=== PATIENT | male | born 1990 | race Caucasian/White ===

== ENCOUNTER 2018-10-09 18:17 | Emergency (ER) | payer OTHER ==
[~2018-10-09] VITALS: Ht 180.3 cm; Wt 112.0 kg
--- OUTSIDE RECORDS SUMMARY | 2018-10-09 18:20 | XMS REPORT | Clinical Summary ---
Author Author [facility] Address Unknown Phone Unavailable Care Team Providers Care Legal Entity Controller Name Role Phone Malia Pagna MD PCP Allergies No Known Allergies Medications End Date Status Medication Sig Dispensed Refills Start Date Active lisinopril Take 10 mg by 3 (PRINIVIL,ZESTRIL) 10 mg mouth daily. 9 tablet Active fluticasone propionate fluticasone 0 (FLONASE) 50 propionate 50 mcg/actuation nasal spray mcg/actuation nasal spray,suspens ion Active syringe with needle (BD BD Allergy 0 ALLERGY SYRINGE) 1 mL 28 Syringe 1 mL gauge syringe 28 gauge USE 1 SYRINGE ONCE A WEEK Active mnnhbdm-ylbbqdzckfrxa-hez Take 1 tablet 0 feine (EXCEDRIN MIGRAINE) by mouth 250-250-65 mg per tablet every 6 (six) hours as needed for headaches. Active Problems No known active problems Encounters Care Team Description Date Type Specialty Jeremy Virgen MD PVC (premature ventricular contraction) (Primary Dx); Paroxysmal atrial fibrillation (HCC) 08/15/2018 Office Visit Cardiology [facility] PCA II PVC (premature ventricular contraction) (Primary Dx) 08/15/2018 Orders Only Cardiology Becky Leong MD Clary, Danisha, MA Routine medical exam (Primary Dx) 11/10/2017 [employer] [facility] after 10/08/2017 Family History Medical History Relation Name Comments Alzheimer's disease Father Dementia Father Cancer Maternal Grandfather COPD Maternal Grandmother Heart failure Maternal Grandmother Depression Mother Diabetes Mother Glaucoma Mother Hypertension Mother Obesity Mother Hyperthyroidism Sister Relation Name Status Comments Father Maternal Grandfather Maternal Grandmother Mother Alive Paternal Grandfather Paternal Grandmother Sister Alive Social History Date Tobacco Use Types Packs/Day Years Used Never Smoker Smokeless Tobacco: Never Used Alcohol Use Drinks/Week oz/Week Comments Yes 1 Cans of 1.2 Social beer 1 Glasses of wine Sex Assigned at Date Recorded Not on file Industry Job Start Date Occupation Not on file Not on file Not on file Travel End Travel History Travel Start No recent travel history available. Last Filed Vital Signs Time Taken Vital Sign Reading 08/23/2018 8:06 AM CDT Blood Pressure 140/79 08/23/2018 8:06 AM CDT Pulse 91 - Temperature - 08/15/2018 9:34 AM CDT Respiratory Rate 16 - Oxygen Saturation - - Inhaled Oxygen - Concentration 08/23/2018 8:06 AM CDT Weight 109 kg (240 lb) 08/23/2018 8:06 AM CDT Height 180.3 cm (5' 11") 08/23/2018 8:06 AM CDT Body Mass Index 33.47 Plan of Treatment Health Maintenance Due Date Last Done Comments INFLUENZA VACCINE 11/02/2018 01/26/2010 Procedures Comments Procedure Name Priority Date/Time Associated Diagnosis ECHOCARDIOGRAM 2D Routine 08/23/2018 PVC (premature COMPLETE W MMODE SPECTRAL 8:50 AM CDT ventricular contraction) COLOR DOPPLER (16161) ECG 12-LEAD Routine 08/15/2018 Paroxysmal atrial 9:33 AM CDT fibrillation (HCC) WELLNESS EVENT QFT Routine 11/10/2017 Routine medical exam 1:28 PM CDT after 10/08/2017 Results * Echocardiogram complete w contrast and 3D if needed (08/23/2018 8:50 AM CDT) Specimen Narrative Performed At [facility] Echocardiography Report Pat.Name:Juan Alberto BAUGH.ID:[id number] St.Date: 08/23/2018 Refer.MD:JEREMY VIRGEN MD Exam Time: 8:05:00 AMStudy Type:Routine Echo Height:71inWeight:240lb BSA: 2.28 m2 DOBAge:1990,28Y Sex: MALEBP:140/79 HR:97 bpm Sonogrphr: Maile De La O, RCS, RCCS, CCT Pat. Stat.:OutpatientRoom:[facility] TapeVol: [facility], Study Status:Final Echo Event ID:[id number] Order ID:[id number] Reason for Study:ECG concerning for heart disease History / Clinical:Hypertension Procedures:2D Echo, Colorflow Doppler Race:C SUMMARY: LV size is normal. LV EF is normal. Diastolic dysfunction Grade I (Mild): Impaired relaxation with normal LV filling pressures. FINDINGS: LV: LV size is normal. LV EF is normal. Overall wall motion is normal.Estimated EF is 55-59%. RV: RV size is normal. RV systolic function is normal. LA: LA size is normal. RA: RA size is normal. AO: Aortic root diameter is normal. NEVAEH: No pericardial effusion. AV: No structural AV abnormalities noted. MV: No structural MV abnormalities noted. PV: No structural PV abnormalities noted. A trace of pulmonic regurgitation. TV: No structural TV abnormalities noted. Norton: RV relaxation is impaired. Diastolic dysfunction Grade I (Mild):Impaired relaxation with normal LV filling pressures. MEASUREMENTS: 2D Parasternal [place] LA Ds3.4 cmLVPWd1 cm LVOT 2.5 cmAo An2.9 cm LVIDd5.5 cmIndex2.4 cm/m Ao Rtd 3.7 cm Index1.6 cm/m LVIDs3.1 cm LV Vqdo802.2 g(122-174) LV%fs 43.6 % LVM Index 93.5 g/m2 IVSd 1 cmRWT0.4 LA Sng Plane LA Area 18.6 cm2(8.8-23.4) LA Vol51.7 ml Index22.7 ml/m LA LngAx 5.7 cm EF Biplane YSQ819.4 mlSV91.6 ml ESV 66.8 mlEF57.8 % Signed 08/24/2018 03:25 PM Tacho Escobar M.D. Procedure Note Interface, Radiology Results In - 08/24/2018 3:25 PM CDT [facility] Echocardiography Report Pat.Name: NANCY BAUGH Pat.ID: [id number] .Date: 08/23/2018 Refer.MD: JEREMY VIRGEN MD Exam Time: 8:05:00 AM Study Type:Routine Echo Height: 71in Weight: 240lb BSA: 2.28 m2 Age: 9 1990,28Y Sex: MALE BP: 140/79 HR: 97 bpm Sonogrphr: Maile De La O, RCS, RCCS, CCT Pat. Stat.:Outpatient Room: [facility] Tape Vol: [facility], Study Status:Final Echo Event ID:[id number] Order ID: [id number] Reason for Study:ECG concerning for heart disease History / Clinical:Hypertension Procedures:2D Echo, Colorflow Doppler Race: C SUMMARY: LV size is normal. LV EF is normal. Diastolic dysfunction Grade I (Mild): Impaired relaxation with normal LV filling pressures. FINDINGS: LV: LV size is normal. LV EF is normal. Overall wall motion is normal. Estimated EF is 55-59%. RV: RV size is normal. RV systolic function is normal. LA: LA size is normal. RA: RA size is normal. AO: Aortic root diameter is normal. NEVAEH: No pericardial effusion. AV: No structural AV abnormalities noted. MV: No structural MV abnormalities noted. PV: No structural PV abnormalities noted. A trace of pulmonic regurgitation. TV: No structural TV abnormalities noted. Norton: RV relaxation is impaired. Diastolic dysfunction Grade I (Mild): Impaired relaxation with normal LV filling pressures. MEASUREMENTS: 2D Parasternal Long [place] LA Ds 3.4 cm LVPWd 1 cm LVOT 2.5 cm Ao An 2.9 cm LVIDd 5.5 cm Index 2.4 cm/m Ao Rtd 3.7 cm Index 1.6 cm/m LVIDs 3.1 cm LV Mass 213.2 g (122-174) LV%fs 43.6 % LVM Index 93.5 g/m2 IVSd 1 cm RWT 0.4 LA Sng Plane LA Area 18.6 cm2 (8.8-23.4) LA Vol 51.7 ml Index 22.7 ml/m LA LngAx 5.7 cm EF Biplane EDV 158.4 ml SV 91.6 ml ESV 66.8 ml EF 57.8 % Signed 08/24/2018 03:25 PM Tacho Escobar M.D. Performing Organization Address City/State/[facility] Phone Number [facility] [phone] [place] [address] * ECG 12 lead (08/15/2018 9:33 AM CDT) Ventricular 92 [facility] rate Atrial rate 92 [facility] WV interval 166 [facility] QRSD interval 90 [facility] QT interval 356 [facility] QTC interval 440 [facility] P axis 1 67 [facility] QRS axis 1 106 [facility] T wave axis 2 [facility] EKG impression Sinus rhythm with occasional [facility]USE premature ventricular complexes-Rightward axis-Borderline ECG-- Specimen Narrative Performed At Performing Organization Address City/State/Zipcode Phone Number [facility] [address] [place] [address] * Wellness event QFT (11/10/2017 1:28 PM CDT) Quantiferon TB Negative Negative [facility] gold plus Comment: Interpretive Data: Quantiferon TB Gold Plus Interferon gamma release is measured for specimens from each of the four collection tubes. A qualitative result (Negative, Positive, or Indeterminate) is based on interpretation of the four values, NIL, MITOGEN minus NIL (MITOGEN-NIL), TB1 minus NIL (TB1-NIL), and TB2 minus NIL (TB2-NIL). The NIL value represents nonspecific reactivity produced by the patient specimen. The MITOGEN-NIL value serves as the positive control for the patient specimen, demonstrating successful lymphocyte activity. The TB1-NIL tube specifically detects CD4+ lymphocyte reactivity, specifically stimulated by the TB1 antigens. The TB2-NIL tube detects both CD4+ and CD8+ lymphocyte reactivity, stimulated by TB2 antigens. An overall Negative result does not completely rule out TB infection. A false-positive result in the absence of other clinical evidence of TB infection is not uncommon. Refer to: Updated Guidelines for Using Interferon Gamma Release Assays to Detect Mycobacterium tuberculosis Infection --- [place], 2010 (http://www.cdc.gov/mmwr/previ ew/mmwrhtml/xh1431u3.htm), for more information concerning test performance in low-prevalence populations and use in occupational screening. Quantiferon 0.00 0.00 - 0.34 IU/mL [facility] plus TB1 minus NIL Quantiferon 0.00 0.00 - 0.34 IU/mL [facility] plus TB2 minus NIL Quantiferon >10.00 IU/mL [facility] mitogen minus NIL Quantiferon NIL 0.02 IU/mL [facility] Comment: Performed by [facility], [address] [place] [address] [email or web address], Jose R Mota MD - Lab. Director Specimen Serum Performing Organization Address City/State/Zipcode Phone Number [facility] [address] [place] [address] after 10/08/2017 Insurance Type Payer Benefit Subscriber ID Effective Phone Address Plan / Dates Group O CIGNA CIGNA OPEN xxxxxxxxxxx [id number] ACCESS/NET resent WORK Advance Directives Patient has advance care planning documents on file. For more information, kacy lozano contact: Rojelio Ennis [address] [place] [address]
[2018-10-09] MEDS ORDERED: BACITRACIN ONE (19:06)
[2018-10-09] MEDS ORDERED: HYDROCORTISONE ONE (19:06)
[2018-10-09] MEDS ORDERED: NEOMYCIN ONE (19:06)
[2018-10-09] MEDS ORDERED: POLYMYXIN B ONE (19:06)
[2018-10-09] MEDS ORDERED: SILVER SULFADIAZINE 50GM CREAM ONE (19:06)
[2018-10-09] MEDS ORDERED: NEOMYCIN/POLYMYX/BACITR OINT 0.9 GM PKT ONE (19:07)
[2018-10-09] MEDS ORDERED: SILVER SULFADIAZINE 50GM CREAM TOP STA (19:10)
[2018-10-09] MEDS ORDERED: NEOMYCIN/POLYMYXIN/BACITRACIN 15 GM TUBE TOP STA (19:10)
[2018-10-09] MEDS ORDERED: HYDROCODONE/APAP 10MG-325MG TAB PO ONE (19:15)
== END 2018-10-09 19:55 | disposition home or self-care (01) ==
LOC: ER 18:17
DX: T23.162A Burn of first degree of back of left hand, initial encounter (principal); X03.8XXA Other exposure to controlled fire, not in building or structure, initial encounter; Y93.G3 Activity, cooking and baking; Y92.007 Garden or yard of unspecified non-institutional (private) residence as the place of occurrence of the external cause; I10 Essential (primary) hypertension
CPT/HCPCS: 99282